=== PATIENT | female | born 1955 | race Caucasian/White ===

== ENCOUNTER → 2017-03-28 | Outpatient (CLI) | payer BC ==
[~2017-03-28] MED LIST: ASPIR 8181 MG PO; ATIVAN0.5 MG PO; CAL-CITRATE PL1 EACH PO; FENOFIBRATE134 MG PO; LORTAB 5-325 M1 EACH PO; NEURONTIN 300300 MG PO; NORVASC 5 MG TAB5 MG PO; OMEGA 3-6-9 CO400 MG PO; PAXIL CR12.5 MG PO; PREVACID30 MG PO; PROAIR HFA8.5 GM INH; TOPROL XL50 MG PO
== END ==
LOC: KOH-I 10:50
DX: S39.92XA Unspecified injury of lower back, initial encounter (principal); M54.5 Low back pain
CPT/HCPCS: 72110